=== PATIENT | male | born 1990 | race Caucasian/White ===

== ENCOUNTER 2018-12-02 16:44 | Emergency (ER) | payer SELFPAY ==
[~2018-12-02] VITALS: Ht 185.4 cm; Wt 79.4 kg
--- NOTE | 2018-12-02 17:24 | ED Abdominal Pain ---
General Stated Complaint: CONSTIPATION,ABD PAIN History of Present Illness Date Seen by Provider: Dec 02, 2018 Time Seen by Provider: 17:19 Initial Comments Patient presenting to the emergency department for evaluation of abdominal pain that has been worsening since yesterday but he has been constipated for one week. Pain as primarily sharp in the epigastric region. Patient says that he has been having pencil thin bowel movements but no blood in his stool. He says he is smoke cigarettes and drinks alcohol approximately 3 days a week. He denies fevers chills dysuria hematuria or testicular pain. He is in no obvious distress with normal vital signs. Allergies and Home Medications Allergies Coded Allergies: No Allergy Information Available (Unverified , 12/02/18) Patient Home Medication List Home Medication List Reviewed: Yes Review of Systems Review of Systems Constitutional: no symptoms reported Gastrointestinal: Abdominal Pain, Constipated All Other Systems Reviewed Negative Unless Noted: Yes Past Lwbyewy-Sumiql-Tipaki Hx Patient Social History Recent Foreign Travel: No Contact w/Someone Who Travel: No Physical Exam Vital Signs Capillary Refill : Height/Weight/BMI Height: '" Weight: lbs. oz. kg; BMI Method: General Appearance: WD/WN HEENT: PERRL/EOMI Neck: supple Respiratory: lungs clear Cardiovascular: regular rate, rhythm Gastrointestinal: soft, tenderness (mild epigastric and supraumbilical tenderness to palpation) Rectal: normal exam, normal rectal tone; No hemorrhoids, No tenderness Back: normal inspection Neurologic/Psychiatric: alert, oriented x 3 Skin: warm/dry Progress/Results/Core Measures Results/Orders Lab Results Laboratory Tests Test 12/02/18 17:15 Range/Units White Blood Count 5.5 4.3-11.0 10^3/uL Red Blood Count 4.80 4.35-5.85 10^6/uL Hemoglobin 16.3 13.3-17.7 G/DL Hematocrit 46 40-54 % Mean Corpuscular Volume 96 80-99 FL Mean Corpuscular Hemoglobin 34 25-34 PG Mean Corpuscular Hemoglobin Concent 35 32-36 G/DL Red Cell Distribution Width 11.9 10.0-14.5 % Platelet Count 196 130-400 10^3/uL Mean Platelet Volume 8.7 7.4-10.4 FL Neutrophils (%) (Auto) 54 42-75 % Lymphocytes (%) (Auto) 34 12-44 % Monocytes (%) (Auto) 9 0-12 % Eosinophils (%) (Auto) 3 0-10 % Basophils (%) (Auto) 0 0-10 % Neutrophils # (Auto) 3.0 1.8-7.8 X 10^3 Lymphocytes # (Auto) 1.9 1.0-4.0 X 10^3 Monocytes # (Auto) 0.5 0.0-1.0 X 10^3 Eosinophils # (Auto) 0.2 0.0-0.3 10^3/uL Basophils # (Auto) 0.0 0.0-0.1 10^3/uL Sodium Level 142 135-145 MMOL/L Potassium Level 3.9 3.6-5.0 MMOL/L Chloride Level 102 98-107 MMOL/L Carbon Dioxide Level 29 21-32 MMOL/L Anion Gap 11 5-14 MMOL/L Blood Urea Nitrogen 12 7-18 MG/DL Creatinine 0.90 0.60-1.30 MG/DL Estimat Glomerular Filtration Rate > 60 BUN/Creatinine Ratio 13 Glucose Level 142 H 70-105 MG/DL Calcium Level 9.5 8.5-10.1 MG/DL Corrected Calcium 9.1 8.5-10.1 MG/DL Total Bilirubin 0.7 0.1-1.0 MG/DL Aspartate Amino Transf (AST/SGOT) 27 5-34 U/L Alanine Aminotransferase (ALT/SGPT) 83 H 0-55 U/L Alkaline Phosphatase 83 40-136 U/L Total Protein 6.8 6.4-8.2 GM/DL Albumin 4.5 3.2-4.5 GM/DL Lipase 16 8-78 U/L My Orders Orders - JANETT CORTES DO Ct Abdomen/Pelvis W (12/02/18 17:09) Cbc With Automated Diff (12/02/18 17:09) Comprehensive Metabolic Panel (12/02/18 17:09) Lipase (12/02/18 17:09) Ua Culture If Indicated (12/02/18 17:09) Iohexol Injection (Omnipaque 350 Mg/Ml 1 (12/02/18 17:30) Received Contrast (Hold Metformin- Contr (12/02/18 17:30) Sodium Chloride Flush (Catheter Flush Sy (12/02/18 17:30) Ns (Ivpb) (Sodium Chloride 0.9% Ivpb Bag (12/02/18 17:30) Medications Given in ED Current Medications Medications Dose Ordered Sig/Radha Route Start Time Stop Time Status Last Admin Dose Admin Iohexol 100 ml ONCE ONCE IV 12/02/18 17:30 12/02/18 17:31 DC 12/02/18 17:37 100 ML Sodium Chloride 10 ml NEEDED PRN IV 12/02/18 17:30 12/02/18 17:37 10 ML Sodium Chloride 100 ml ONCE ONCE IV 12/02/18 17:30 12/02/18 17:31 DC 12/02/18 17:37 100 ML Progress Progress Note : Progress Note Well check labs and imaging urinalysis CT and reassess. Patient does not want anything for pain at this time as he says the pain is not too bad. Patient's labs appear normal and his CT shows mesenteric adenitis. Patient's repeat abdominal exam is benign and he continues to feel well and wanted nothing for pain. Given patient appears well with normal vital signs benign physical exam workup he'll be discharged in stable condition told to take magnesium and Colace for his constipation And ibuprofen for his pain. Patient will follow primary care provider in 2 days and come back to the ED sooner with worsening pain fevers vomiting vaginal concerns. Patient aware and agreeable with plan for discharge and verbalized understanding of the above instructions. Departure Impression Primary Impression: Abdominal pain Additional Impressions: Mesenteric adenitis Constipation Disposition: 01 HOME, SELF-CARE Condition: Stable Departure-Patient Inst. Referrals: NO,LOCAL PHYSICIAN (PCP) Primary Care Physician Patient Instructions: Mesenteric Lymphadenitis (DC), Constipation, Adult (DC) Add. Discharge Instructions: Take OTC magnesium citrate and Colace for the constipation. For the pain take 600mg of ibuprofen every 6 hours. Eat a soft diet and drink plenty of fluids. Follow with PCP in 2 days. Thank you! JANETT CORTES DO Dec 02, 2018 17:24
[2018-12-02 17:25] LABS: BASOPHILS % (AUTO) 0 % (0-10); EOSINOPHILS % (AUTO) 3 % (0-10); HEMATOCRIT 46 % (40-54); HEMOGLOBIN 16.3 G/DL (13.3-17.7); LYMPHOCYTES # (AUTO) 1.9 X 10^3 (1.0-4.0); LYMPHOCYTES % (AUTO) 34 % (12-44); MEAN CORPUSCULAR HEMOGLOBIN 34 PG (25-34); MEAN CORPUSCULAR HGB CONC 35 G/DL (32-36); MEAN CORPUSCULAR VOLUME 96 FL (80-99); MEAN PLATELET VOLUME 8.7 FL (7.4-10.4); MONOCYTES # (AUTO) 0.5 X 10^3 (0.0-1.0); MONOCYTES % (AUTO) 9 % (0-12); NEUTROPHILS % (AUTO) 54 % (42-75); PLATELET COUNT 196 10^3/uL (130-400); RED CELL DISTRIBUTION WIDTH 11.9 % (10.0-14.5); WHITE BLOOD COUNT 5.5 10^3/uL (4.3-11.0)
[2018-12-02 17:26] LABS: EOSINOPHILS # (AUTO) 0.2 10^3/uL (0.0-0.3)
[2018-12-02] MEDS ORDERED: IOHEXOL 350 MG/ML 100 ML (OMNIPAQUE 350) VIAL IV ONE (17:30)
[2018-12-02] MEDS ORDERED: CATHETER FLUSH 10 ML SYR IV PRN (17:30)
[2018-12-02] MEDS ORDERED: HOLD METFORMIN - RECEIVED CONTRAST 20 ML VIAL IV SCH (17:30)
[2018-12-02] MEDS ORDERED: NS 100 ML (IVPB) BAG IV ONE (17:30)
--- NOTE | 2018-12-02 17:52 | Diagnostic Imaging Report ---
CLINICAL INDICATION: Patient with loose stools and abdominal distention x1 day. Patient has mid abdominal pain x1 day. No regular bowel movement. EXAM: CT scan of the abdomen and pelvis performed with 100 cc of Omnipaque 350 IV contrast. Coronal and sagittal reformatted images were created. Portal venous phase was obtained. COMPARISON: None. FINDINGS: The lung bases are clear. The liver, spleen, pancreas, gallbladder, adrenal glands, and both kidneys are unremarkable. There is no hydronephrosis, stones, or mass seen. There are nonspecific lymph nodes seen in the gastrohepatic ligament region. While the largest lymph node measures 2.0 cm x 1.0 cm in the AP and transverse dimensions. There are multiple mesenteric lymph nodes seen as well. The sigmoid colon and left colon are decompressed. The stomach and small bowel are unremarkable. Appendix is unremarkable. There is no intra-abdominal free air or free fluid. Bladder is partially fluid-filled with no gross abnormality. The extra-abdominal and extrapelvic soft tissue structures are unremarkable. Bones show no significant abnormality. IMPRESSION: 1: There is mesenteric lymphadenopathy and prominent lymph nodes in the gastrohepatic ligament region of unknown etiology. These findings may be seen with mesenteric adenitis and/or gastroenteritis. The visualized portions of the intestines are unremarkable, as visualized, with no definite obstruction seen. 2: The remainder of this exam is unremarkable. Dictated by: Dictated on workstation # [id number]
[2018-12-02 17:55] LABS: ALANINE AMINOTRANSFERASE 83 U/L (0-55); ALBUMIN 4.5 GM/DL (3.2-4.5); ALKALINE PHOSPHATASE 83 U/L (40-136); BILIRUBIN,TOTAL 0.7 MG/DL (0.1-1.0); BUN/CREATININE RATIO 13; CALCIUM 9.5 MG/DL (8.5-10.1); CARBON DIOXIDE 29 MMOL/L (21-32); CHLORIDE 102 MMOL/L (98-107); GFR ESTIMATED > 60; GLUCOSE 142 MG/DL (70-105); LIPASE 16 U/L (8-78); POTASSIUM 3.9 MMOL/L (3.6-5.0); SODIUM 142 MMOL/L (135-145); TOTAL PROTEIN 6.8 GM/DL (6.4-8.2)
[2018-12-02 18:10] VITALS: BP 109/60
--- OUTSIDE RECORDS SUMMARY | 2018-12-02 23:02 | XMS REPORT ---
Author Author Migration, Doctor Organization [facility] Address Unknown Phone Unavailable Care Team Providers Care Silo Man Name Role Phone Migration, Doctor Unavailable Unavailable PROBLEMS Type Condition ICD9-CM Code NON38-GR Code Onset Dates Condition Status SNOMED Code Problem Wheezing 786.07 Active 06165021 Problem Nondependent tobacco use disorder 305.1 Active 272281143 ALLERGIES No Information ENCOUNTERS Encounter Location Date Diagnosis [facility] [address] [place] [phone] Nov, Dental examination Z01.20 and Dental caries K02.9 [facility] [id number], [place] [address] Sep, [facility] [id number] [place] [phone] Sep, [facility] [address], [place] [address] Jan, IMMUNIZATIONS No Known Immunizations SOCIAL HISTORY Never Assessed REASON FOR VISIT [facility] [place] PLAN OF CARE VITAL SIGNS MEDICATIONS No Known Medications RESULTS No Results PROCEDURES No Known procedures INSTRUCTIONS MEDICATIONS ADMINISTERED No Known Medications
--- OUTSIDE RECORDS SUMMARY | 2018-12-02 23:02 | XMS REPORT ---
Author Author joseNATHALIA Gurrola Organization [facility] Address [address] [place] [address] Care Team Providers Care Supervisor [employer] Name Role Phone NATHALIA Wynne Unavailable PROBLEMS Type Condition ICD9-CM Code [id number] Code Onset Dates Condition Status SNOMED Code Problem Nondependent tobacco use disorder 305.1 Active 205253466 Problem Wheezing 786.07 Active [id number] ALLERGIES No Known Allergies ENCOUNTERS Encounter Location Date Diagnosis [facility] [address] [place] [phone] Nov, Dental examination Z01.20 and Dental caries K02.9 [facility] [address] [place] [phone] Sep, [facility] [id number] [place] [phone] Sep, [facility] [id number] [place] [phone] Jan, IMMUNIZATIONS No Known Immunizations SOCIAL HISTORY Never Assessed REASON FOR VISIT martha/swelling PLAN OF CARE Activity Details Follow Up prn Reason: VITAL SIGNS Blood pressure systolic 129 mmHg 2017-11-24 Blood pressure diastolic 79 mmHg 2017-11-24 MEDICATIONS Medication Instructions Dosage Frequency Start Date End Date Duration Status Albuterol Sulfate 90 mcg/actuation 2 puffs by Inhalation route every 6 hours as needed PRN cough or wheezing Jan, Not-Taking Excedrin Extra Strength Active Flonase 50 mcg/actuation 1 sprays by Nasal route 2 times per day in each nostril Jan, Not-Taking ZyrTEC 10 mg 1 tablet by Oral route 1 time per day for allergies- can sub Claritin if covered by card Jan, Not-Taking RESULTS No Results PROCEDURES Procedure Date Ordered Result Body Site LTD ORAL EVALUATION - PROBLEM FOCUS November 24, 2017 INTRAORL-PERIAPICAL 1 FILM [id number] November 24, 2017 EXTRAC ERUPTED TOOTH/EXPOSED ROOT November 24, 2017 BITEWING - SINGLE FILM November 24, 2017 INSTRUCTIONS MEDICATIONS ADMINISTERED No Known Medications
--- OUTSIDE RECORDS SUMMARY | 2018-12-02 23:02 | XMS REPORT ---
Author Author Migration, Doctor Organization [facility] Address Unknown Phone Unavailable Care Team Providers Care Consumer Safety Officer Name Role Phone Migration, Doctor Unavailable Unavailable PROBLEMS Type Condition ICD9-CM Code [id number] Code Onset Dates Condition Status SNOMED Code Problem Wheezing 786.07 Active 56407005 Problem Nondependent tobacco use disorder 305.1 Active [id number] ALLERGIES No Information ENCOUNTERS Encounter Location Date Diagnosis [facility] [address] [place] [phone] Nov, Dental examination Z01.20 and Dental caries K02.9 [facility] [address], [place] [address] Sep, [facility] [address], [place] [address] Sep, [facility] [address], [place] [address] Jan, IMMUNIZATIONS No Known Immunizations SOCIAL HISTORY Never Assessed REASON FOR VISIT [facility] [place] PLAN OF CARE VITAL SIGNS MEDICATIONS Medication Instructions Dosage Frequency Start Date End Date Duration Status Flonase 50 mcg/actuation 1 sprays by Nasal route 2 times per day in each nostril Jan, Active ZyrTEC 10 mg 1 tablet by Oral route 1 time per day for allergies- can sub Claritin if covered by card Jan, Active Albuterol Sulfate 90 mcg/actuation 2 puffs by Inhalation route every 6 hours as needed PRN cough or wheezing Jan, Active RESULTS No Results PROCEDURES No Known procedures INSTRUCTIONS MEDICATIONS ADMINISTERED No Known Medications
== END 2018-12-02 18:10 | disposition home or self-care (01) ==
LOC: ER FS 16:46
DX: K59.00 Constipation, unspecified (principal); I88.0 Nonspecific mesenteric lymphadenitis; F17.210 Nicotine dependence, cigarettes, uncomplicated
CPT/HCPCS: 36415; 74177; 80053; 83690; 85025